=== PATIENT | male | born 1965 | race Caucasian/White ===

== ENCOUNTER 2022-04-13 20:21 | Emergency (ER) | payer BC, SELFPAY ==
[2022-04-13 20:22] VITALS: BP 60/40; BP 60/48; PULSE 38; PULSE 74; RESP 15; RESP 23; TEMP 36.3; O2SAT 90; O2SAT 93; BMI 32.4
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
--- NOTE | 2022-04-13 21:15 | ED.RN ---
PATIENT RECEIVED APROX 350 ML OF FLUIDS
--- NOTE | 2022-04-14 12:48 | CM.ED ---
Addendum entered by Bruna Cam 04/14/22 20:26: Correction: Tatiana's email is [email or web address]. Addendum entered by Bruna Cam 04/14/22 20:00: SW received call from pt's daughter Tatiana. SW provided support to Tatiana. Tatiana states that she doesn't know what to do. Tatiana states that her mom unexpectedly a month ago from Pulmonary Embolism and now her father unexpectedly. JOVANI informed Tatiana that this worker did call Mayelin earlier and provided resources and that this worker can either verbally provided resources to Tatiana or this worker can email her. Tatiana states to email her and provided email at [email or web address]. JOVANI encouraged Tatiana that if she feels like hurting herself or others to call Crisis or come to ED. Tatiana appeared to be crying on the phone during conversation. Tatiana states that she has a little boy and his family is good support for her. Tatiana asked if the resources will be paid through insurance as she doesn't have a lot of money. JOVANI informed Tatiana that typically support groups are free but if she decides to do individual counseling or group counseling, that service would get billed through her insurance. Tatiana states understanding. JOVANI also informed Tatiana that there are a lot of online support groups as well. JOVANI emailed Tatiana resources/websites for Grief including [facility], [facility], Crisis number, PALS support group (People Affected by a Loved-One's Suicide) information and contact information. JOVANI also provided Tatiana with website for [place] for suicide loss survivors, [employer] Suicide Awareness Vo[employer] of Education - Grief Support for Suicide Loss Survivors, and Resources for Survivors of Suicide Loss. Addendum entered by Bruna Cam 04/14/22 19:39: SW placed another call to Tatiana Love and message left for her to call this worker back if she would like. Original Note: Social Work Note SW received referral to call pt's family ( Mayelin Donaldson) and daughter (Tatiana Love) regarding pt. JOVANI placed a call to pt's Mayelin Donaldson ([phone]). SW offered much support. JOVANI informed Mayelin that this worker can email her Grief resources or can review Grief Resources over the phone. Mayelin states to just review resources over the phone. JOVANI reviewed Grief Resources with Mayelin including [facility], [facility], Crisis number, PALS support group (People Affected by a Loved-One's Suicide) information and contact information and educated Mayelin that there are a lot of online support groups too on the internet and a lot of additional resources online including [facility].org as they have a section for Loss Surviviors for those that lost a loved one to suicide. JOVANI spoke with Mayelin that if she feels like hurting herself or others to call the Crisis number - number provided. Mayelin states that he has a good support system and is currently at her mom's house. JOVANI encouraged Mayelin to reach out to her support system and to ask for help if needed. Mayelin thanked this worker for the call. JOVANI placed a call to isabel's daughter Tatiana Love ([phone]) and left message with direct number if she would like to call this SW back. Bruna Cam CONSTRUCTION EXECUTIVE, SUEDING MACHINE TENDER
== END 2022-04-13 23:41 ==
PROVIDERS: Emergency Provider Emergency Medicine; Visit Provider Emergency Medicine
DX: S01.93XA Puncture wound without foreign body of unspecified part of head, initial encounter (principal); J96.90 Respiratory failure, unspecified, unspecified whether with hypoxia or hypercapnia
CPT/HCPCS: 31500; 36415; 51702; 99251; 99284; J7030; A4216; G0463